=== PATIENT | female | born 1970 | race Caucasian/White ===

== ENCOUNTER 2022-12-31 13:10 | Emergency (ER) | payer OTHER ==
[2022-12-31] MEDS ORDERED: ASPIRIN CHEW 81 MG TABLET PO STA (13:53)
--- NOTE | 2022-12-31 13:56 | ED Physician Documentation ---
PD HPI CHEST PAIN - Stated complaint Stated Complaint: HIGH BP/PULSE CHEST TIGHT - Chief complaint Chief Complaint: Cardiac - History obtained from History obtained from: Patient - Additional information Additional information: 52-year-old woman with history of bipolar disorder and stroke in 2010. Currently only medication is Topamax. For the last 2 weeks she has had ringing in both ears, pretty symmetric. She does not take aspirin. Over the last 2 days or so she has developed constant chest heaviness that has radiated to the back. It does not change with breathing and she is not short of breath. She does feel mildly generally ill. No history of heart problems. No pedal edema or calf pain. She is worried because she has checked her blood pressure at home and it was on the high side for her. PD PAST MEDICAL HISTORY - Present Medications Home Medications: Ambulatory Orders Medication Instructions Recorded Confirmed Albuterol Sulf [Ventolin Hfa 1 - 2 puffs INH Q4HR PRN 12/31/22 12/31/22 Inhaler] Atorvastatin [Lipitor] 0 mg PO QPM 12/31/22 12/31/22 Levothyroxine [Synthroid] 0 mcg PO QDAC 12/31/22 12/31/22 Topiramate [Topamax] 50 mg PO HS 12/31/22 12/31/22 - Allergies Allergies/Adverse Reactions: Allergies Allergy/AdvReac Type Severity Reaction Status Date / Time Antiepileptics with Arene Allergy Unknown Verified 12/31/22 13:50 Oxide Met bupropion Allergy Unknown Verified 12/31/22 13:50 carbamazepine Allergy Unknown Verified 12/31/22 13:50 cariprazine [From Vraylar] Allergy Unknown Verified 12/31/22 13:50 ciprofloxacin Allergy Unknown Verified 12/31/22 13:50 diethylpropion Allergy Unknown Verified 12/31/22 13:50 donepezil Allergy Unknown Verified 12/31/22 13:50 Macrolide Antibiotics Allergy Unknown Verified 12/31/22 13:50 nitrofurantoin Allergy Unknown Verified 12/31/22 13:50 NSAIDS (Non-Steroidal Allergy Unknown Verified 12/31/22 13:50 Anti-Inflamma ondansetron Allergy Unknown Verified 12/31/22 13:50 oxcarbazepine Allergy Unknown Verified 12/31/22 13:50 Quinolones Allergy Unknown Verified 12/31/22 13:50 Serotonin 5HT-3 Antagonists Allergy Unknown Verified 12/31/22 13:50 Sulfa (Sulfonamide Allergy Unknown Verified 12/31/22 13:50 Antibiotics) tricyclamol chloride Allergy Unknown Verified 12/31/22 13:50 [id number] Antimigraine Allergy Unknown Verified 12/31/22 13:50 Agents PD ED PE NORMAL - Vitals Vital signs reviewed: Yes - General General: Alert and oriented X 3, No acute distress - HEENT HEENT: Ears normal - Neck Neck: No bruit - Cardiac Cardiac: RRR, No murmur - Respiratory Respiratory: No respiratory distress, Clear bilaterally - Abdomen Abdomen: Non tender - Extremities Extremities: No edema, No calf tenderness / cord - Neuro Neuro: Alert and oriented X 3, Normal speech Results - Vitals Vitals: Vital Signs - 24 hr 12/31/22 12/31/22 13:26 14:01 Heart Rate 107 H 88 Respiratory 18 10 L Rate Blood Pressure 159/110 H 119/105 H O2 Saturation 98 97 Oxygen O2 Source Room air - EKG (time done) 1234 EKG releavant findings:: EKG personally interpreted by author of this note. Relevant findings are: Rate: Rate (enter#) (93) Rhythm: NSR, LAE Intervals: Normal LA QRS: Normal Ischemia: Non specific changes. No: ST elevation c/w ischemia, ST depression - Labs Labs: Laboratory Tests 12/31/22 12/31/22 12/31/22 14:00 14:00 14:00 WBC 16.1 H RBC 4.21 Hgb 14.3 Hct 42.8 MCV 101.7 H MCH 34.0 H MCHC 33.4 RDW 11.8 L Plt Count 389 MPV 8.9 Neut # (Auto) 11.6 H Lymph # (Auto) 3.3 [place] # (Auto) 0.9 Eos # (Auto) 0.2 Baso # (Auto) 0.1 Absolute Nucleated RBC 0.00 Nucleated RBC % 0.0 Sodium 141 Potassium 3.4 L Chloride 111 Carbon Dioxide 21 Anion Gap 9.0 BUN 14 Creatinine 1.1 H Estimated GFR (MDRD) 52 L Glucose 126 H Calcium 10.0 Total Bilirubin 0.4 AST 17 ALT 18 Alkaline Phosphatase 85 Troponin I High Sens 4.8 Total Protein 7.4 Albumin 4.3 Globulin 3.1 Albumin/Globulin Ratio 1.4 Lipase 36 PD Medical Decision Making - ED course ED course: 52-year-old woman with chest pain, its been ongoing for about 2 days now so single troponin should be predictive. CBC notable for nonspecific leukocytosis. CMP reviewed and normal. Troponin normal/negative. Chest x-ray is unremarkable. ACS is of course considered, but given the constant pain and negative troponin with nonischemic EKG this is very unlikely. Aortic dissection is considered, but she is not in extremis, her blood pressure comes down to normal without specific intervention, no widened mediastinum on x-ray. She is quite worried about her new ringing in the ears. Vascular causes considered but there is no bruit in the carotids and no murmur. It is symmetric. She notes on further history that it gets worse as she gets close to a power transformer and better as she gets away from it. This is reproducible for her. Departure - Departure Disposition: 01 Home, Self Care Clinical Impression: Chest pain Condition: Good Record reviewed to determine appropriate education?: Yes Instructions: ED Chest Pain Atypical Unkn Cause Follow-Up: Jeremy Foster DO [Provider Admit Priv/Credential] - Comments: The cause of your chest pain is not clear, that said there is no evidence of ongoing heart issue. The primary care provider on-call for next week is listed on this form. Call his office and follow-up with him. Consideration for stress testing. Take a baby aspirin a day as discussed. Return for new or worsening symptoms.
[2022-12-31 14:01] VITALS: BP 119/105
[2022-12-31 14:07] LABS: BASOPHILS # (AUTO) 0.1 10^3/uL (0.0-0.1); BASOPHILS % (AUTO) 0.5 %; EOSINOPHILS # (AUTO) 0.2 10^3/uL (0.0-0.7); EOSINOPHILS % (AUTO) 0.9 %; HCT - HEMATOCRIT 42.8 % (37.0-47.0); HGB - HEMOGLOBIN 14.3 g/dL (12.0-16.0); LYMPHOCYTES # (AUTO) 3.3 10^3/uL (1.5-3.5); LYMPHOCYTES % (AUTO) 20.3 %; MEAN CORPUSCULAR HGB CONC 33.4 g/dL (32.0-36.0); MEAN CORPUSCULAR VOLUME 101.7 fL (81.0-99.0); MEAN PLATELET VOLUME 8.9 fL (7.9-10.8); MONOCYTES # (AUTO) 0.9 10^3/uL (0.0-1.0); MONOCYTES % (AUTO) 5.7 %; NEUTROPHILS # (AUTO) 11.6 10^3/uL (1.5-6.6); NEUTROPHILS % (AUTO) 72.2 %; PLT - PLATELET COUNT 389 10^3/uL (130-450); RED BLOOD COUNT 4.21 10^6/uL (4.20-5.40); RED CELL DISTRIBUTION WIDTH 11.8 % (12.0-15.0); WHITE BLOOD COUNT 16.1 x10^3/uL (4.8-10.8)
--- NOTE | 2022-12-31 14:16 | XRAY Report ---
PROCEDURE: Chest 1 View X-Ray INDICATIONS: Chest Pain TECHNIQUE: One view of the chest was acquired. COMPARISON: None. FINDINGS: Surgical changes and devices: None. Lungs and pleura: No pleural effusions or pneumothorax. Lungs are clear. Mediastinum: Mediastinal contours appear normal. Heart size is normal. Bones and chest wall: No suspicious bony lesions. Overlying soft tissues appear unremarkable. IMPRESSION: Normal chest Reviewed by: Luis Enrique Hills on 12/31/2022 1:15 PM CAROL Approved by: Luis Enrique Hills on 12/31/2022 1:15 PM AKDT Station ID: [id number]
[2022-12-31 14:27] LABS: ALBUMIN 4.3 g/dL (3.2-5.5); ALBUMIN/GLOBULIN RATIO 1.4 (1.0-2.2); BILIRUBIN,TOTAL 0.4 mg/dL (0.2-1.0); CREATININE 1.1 mg/dL (0.4-1.0); POTASSIUM 3.4 mmol/L (3.5-5.0); TOTAL PROTEIN 7.4 g/dL (6.7-8.2)
== END 2022-12-31 14:58 | disposition home or self-care (01) ==
LOC: ED 13:10
DX: R07.9 Chest pain, unspecified (principal)
CPT/HCPCS: 36415; 71045; 80053; 83690; 84484; 85025; 93005; 99284; A9270